=== PATIENT | female | born 1980 | race Caucasian/White ===

== ENCOUNTER 2018-06-10 10:49 | Emergency (ER) | payer OTHER ==
[2018-06-10 11:19] VITALS: BP 112/74; PULSE 109; RESP 18; TEMP 98.9
[2018-06-10] MEDS ORDERED: ACET/COD 300 MG/30 MG STARTER PACK 6 TAB BTL PO STA (11:36)
--- NOTE | 2018-06-10 11:37 | ED ---
URI HPI - General Chief Complaint: Upper Respiratory Infection Stated Complaint: poss allergic reaction Time Seen by Provider: 06/10/18 11:24 Source: patient, RN notes reviewed Mode of arrival: ambulatory Limitations: no limitations - History of Present Illness Initial Comments: 38-year-old female presents emergency Department chief complaint of sinus pressure, congestion sore throat or pressure. Patient states she has been sick for last couple weeks until PCP and was placed on Bactrim for 3 days. Patient states that she was not feeling better she went back and was prescribed the same medication. She states every time she takes medication she feels worse. She states that she aches now from it. Patient denies any vomiting states she' s had some nausea. Denies any chest pain or shortness breath. Patient also states that she felt like she slept wrong and has some stiffness the side of her neck. She has no pain with flexion extension. Patient denies any focal weakness, blurred vision. Patient states that she has never taken Bactrim in the past. - Related Data Previous Rx's Medication Instructions Recorded Clarithromycin [Biaxin] 500 mg PO Q12HR #20 tablet 06/10/18 Cyclobenzaprine [Flexeril] 10 mg PO TID PRN #15 tab 06/10/18 predniSONE 50 mg PO DAILY #5 tab 06/10/18 Allergies Allergy/AdvReac Type Severity Reaction Status Date / Time Penicillins Allergy Rash/Hives Verified 06/10/18 11:36 Review of Systems ROS Statement: Those systems with pertinent positive or pertinent negative responses have been documented in the HPI. ROS Other: All systems not noted in ROS Statement are negative. Past Medical History Past Medical History: No Reported History History of Any Multi-Drug Resistant Organisms: None Reported Past Surgical History: Tubal Ligation Additional Past Surgical History / Comment(s): fistula repair Past Psychological History: No Psychological Hx Reported Smoking Status: Current every day smoker Past Alcohol Use History: Rare Past Drug Use History: None Reported General Exam Limitations: no limitations General appearance: alert, in no apparent distress Head exam: Present: atraumatic, normocephalic, normal inspection Eye exam: Present: normal appearance, PERRL, EOMI. Absent: scleral icterus, conjunctival injection, periorbital swelling ENT exam: Present: mucous membranes moist, normal external ear exam, other ( Sinus tenderness bilaterally maxillary). Absent: normal oropharynx (Postnasal drainage), TM's normal bilaterally (Fluid noted bilaterally) Neck exam: Present: normal inspection, tenderness (Tenderness of the trapezius, cervical paraspinal region), full ROM. Absent: meningismus, lymphadenopathy Respiratory exam: Present: normal lung sounds bilaterally. Absent: respiratory distress, wheezes, rales, rhonchi, stridor Cardiovascular Exam: Present: regular rate, normal rhythm, normal heart sounds. Absent: systolic murmur, diastolic murmur, rubs, gallop, clicks Neurological exam: Present: alert, oriented X3, CN II-XII intact Skin exam: Present: warm, dry, intact, normal color. Absent: rash Course Vital Signs 06/10/18 11:16 Temperature 98.9 F Pulse Rate 109 H Respiratory 18 Rate Blood Pressure 112/74 O2 Sat by Pulse 99 Oximetry Medical Decision Making - Medical Decision Making 38-year-old female presented emergency department for sinus issues, headache not feeling well. Patient has underlying sinusitis. Patient does have an ALLERGY to penicillin. Patient was started on Bactrim is having a reaction to this. This will be stopped at this time and given prednisone and biaxin. Patient also complains of neck pain is related to trapezius muscle spasm. Patient be dischaI did discuss that she is to follow-up for recheck in one to days return for any worsening symptoms.rged with Flexeril. Disposition Clinical Impression: Acute sinusitis, Trapezius strain, Myalgia, Medication reaction Disposition: HOME SELF-CARE Condition: Stable Instructions: Sinusitis (ED) Additional Instructions: Please return to the Emergency Department if symptoms worsen or any other concerns. Prescriptions: Clarithromycin [Biaxin] 500 mg PO Q12HR #20 tablet Cyclobenzaprine [Flexeril] 10 mg PO TID PRN #15 tab PRN Reason: Muscle Spasm predniSONE 50 mg PO DAILY #5 tab Is patient prescribed a controlled substance at d/c from ED?: No Referrals: Jules Gaytan DO [Primary Care Provider] - 1-2 days Time of Disposition: 11:36
== END 2018-06-10 11:59 | disposition home or self-care (01) ==
LOC: EC 10:49
DX: S46.919A Strain of unspecified muscle, fascia and tendon at shoulder and upper arm level, unspecified arm, initial encounter (principal); J01.90 Acute sinusitis, unspecified; T37.0X5A Adverse effect of sulfonamides, initial encounter; M79.1 Myalgia; F17.200 Nicotine dependence, unspecified, uncomplicated; Z88.0 Allergy status to penicillin
CPT/HCPCS: 99283

== ENCOUNTER → 2019-02-02 | Outpatient (CLI) | payer OTHER ==
[2019-02-02 13:25] LABS: Basophils % (A) 1 %; Eosinophils # (A) 0.1 k/uL (0-0.7); Eosinophils % (A) 1 %; HCT 42.2 % (34.0-46.0); HGB 13.2 gm/dL (11.4-16.0); Lymphocytes # (A) 3.2 k/uL (1.0-4.8); Lymphocytes % (A) 42 %; MCH 28.1 pg (25.0-35.0); MCHC 31.4 g/dL (31.0-37.0); MCV 89.4 fL (80.0-100.0); Mean Platelet Volume 7.5; Monocytes # (A) 0.3 k/uL (0-1.0); Monocytes % (A) 4 %; Neutrophils # (A) 3.9 k/uL (1.3-7.7); Neutrophils % (A) 51 %; Platelet Count 207 k/uL (150-450); RBC 4.72 m/uL (3.80-5.40); RDW 13.6 % (11.5-15.5); WBC 7.6 k/uL (3.8-10.6)
== END | disposition home or self-care (01) ==
LOC: LABPAT 12:42
PROVIDERS: ATTEND Obstetrics & Gynecology
DX: Z01.812 Encounter for preprocedural laboratory examination (principal)
CPT/HCPCS: 36415; 85025

== ENCOUNTER 2019-02-12 06:44 | Day surgery (SDC) | payer OTHER ==
[2019-02-10 11:49] VITALS: BMI 26.6
--- NOTE | 2019-02-10 16:17 | P.HPOB ---
History of Present Illness H&P Date: 02/10/19 Chief Complaint: Menorrhagia Patient is a 38-year-old female who has heavy vaginal bleeding. Patient relates that the heavy vaginal bleeding has been going on where she is bleeding every 2 weeks very heavy for the first 3-4 days lasting 5-7 days this is been present for a number of months. An ultrasound was done in November which revealed no specific findings. Labs were also generally unremarkable. She is scheduled for D&C with hysteroscopy NovaSure ablation at her request. She did have a tubal ligation. On physical exam vital signs are stable and afebrile. Heart regular, lungs clear, extremities without pain. Abdomen soft nontender. Positive bowel sounds are noted. Assessment menorrhagia. Plan D&C with hysteroscopy NovaSure ablation risks/benefits/alternatives reviewed with the patient in detail and did include but were not limited to potential bleeding and infection as well as pain issues from the ablation as well as potential perforation or other problems competitions that may require further surgery. Past Medical History Past Medical History: Cancer Additional Past Medical History / Comment(s): hx. cervical cancer 20 yrs ago, heavy, frequent periods History of Any Multi-Drug Resistant Organisms: None Reported Past Surgical History: Tubal Ligation Additional Past Surgical History / Comment(s): fistula repair Past Anesthesia/Blood Transfusion Reactions: Motion Sickness, Postoperative Nausea & Vomiting (PONV) Smoking Status: Former smoker - Past Family History Father Family Medical History: Cancer Medications and Allergies Home Medications Medication Instructions Recorded Confirmed Type L.acidoph,Paracasei, B.lactis 1 each PO DAILY 02/10/19 02/10/19 History [Probiotic] Turmeric Root Extract [Turmeric] 500 mg PO DAILY 02/10/19 02/10/19 History Allergies Allergy/AdvReac Type Severity Reaction Status Date / Time Penicillins Allergy Rash/Hives Verified 02/10/19 11:36 Sulfa (Sulfonamide Allergy dizzy,light Verified 02/10/19 11:36 Antibiotics) headed,head ache Exam Osteopathic Statement: *. No significant issues noted on an osteopathic stru ctural exam other than those noted in the History and Physical/Consult. Intake and Output 02/10/19 02/10/19 02/10/19 06:59 14:59 22:59 Other: Weight 72.575 kg
[~2019-02-12 06:44] MED LIST: DEXAMETHASONE SOD PHOSPHATE 10 MG/ML 1 ML VIAL IV ONE; HYDROmorphone 0.5 MG/0.5 ML SYRINGE IVP PRN; LACTATED RINGERS 1,000 ML IV SCH; LIDOCAINE 1% 20 ML VIAL (10MG/ML) FOR IV START INTRADERMA PRN; ONDANSETRON 4 MG/2 ML VIAL IVP ONE; Pre Op ABX Message 1 EACH MISC MISCELLANE ONE; SCOPOLAMINE 1.5MG/72HR PATCH TRANSDERM ONE
[2019-02-12] MEDS ORDERED: LIDOCAINE 1% INJ 10MG/ML (20 ML MDV) ONE (07:36)
[2019-02-12] MEDS ORDERED: PROPOFOL 10 MG/ML 20 ML VIAL IV ONE (07:36)
[2019-02-12] MEDS ORDERED: MIDAZOLAM 2 MG/2 ML VIAL ONE (07:36)
[2019-02-12] MEDS ORDERED: KETOROLAC 30 MG/ML 1 ML VIAL ONE (07:36)
[2019-02-12] MEDS ORDERED: fentaNYL (PF) 50 MCG/ML 2 ML AMP ONE (07:36)
--- NOTE | 2019-02-12 08:18 | P.OP ---
Date of Procedure: 02/12/19 Preoperative Diagnosis: Menorrhagia Postoperative Diagnosis: Same Procedure(s) Performed: D&C with hysteroscopy, NovaSure ablation Anesthesia: KAYLEIGHA Surgeon: Fito Vegas Estimated Blood Loss (ml): 3 Pathology: other (Uterine curettings) Condition: stable Disposition: same day Operative Findings: Anteverted uterus no other pathology noted Description of Procedure: Patient was taken to the operating suite where a general anesthetic was found be adequate. She was prepped and draped in the normal sterile fashion and placed in the dorsal lithotomy position. Initially a weighted speculum was inserted into the vagina and the anterior lip cervix identified and grasped with Allis clamp. Cervix was then sounded to 9 cm and was dilated. Camera was inserted no gross pathology was noted. Therefore camera was removed and sharp curettings of the endometrium were obtained. Tissue was placed on Telfa and sent to pathology. Once completed uterus the NovaSure systems inserted with length of 4.5 and a width of 2.5 it was tested and enabled. It was then burned for 2 minutes. Incidents were then removed camera was reinserted with excellent burn noted. All incidents were then removed. Sponge, lap, needle counts were all correct 2. Patient was taken to the recovery room in stable and satisfactory condition. Plan - Discharge Summary Discharge Rx Participant: Yes New Discharge Prescriptions: New Ibuprofen [Motrin] 600 mg PO Q6HR PRN #30 tab PRN Reason: Pain No Action Turmeric Root Extract [Turmeric] 500 mg PO DAILY L.acidoph,Paracasei, B.lactis [Probiotic] 1 each PO DAILY Discharge Medication List L.acidoph,Paracasei, B.lactis [Probiotic] 1 each PO DAILY 02/10/19 [History] Turmeric Root Extract [Turmeric] 500 mg PO DAILY 02/10/19 [History] Ibuprofen [Motrin] 600 mg PO Q6HR PRN #30 tab 02/12/19 [Rx] Follow up Appointment(s)/Referral(s): Fito Vegas DO [Doctor of Osteopathic Medicine] - 2 Weeks Activity/Diet/Wound Care/Special Instructions: No heavy lifting, limit stairs and driving and pelvic rest today. If any high temperatures, heavy bleeding, or severe pain call my office Discharge Disposition: HOME SELF-CARE
[2019-02-12 08:24] VITALS: TEMP 96.7
[2019-02-12 09:15] VITALS: RESP 16
[2019-02-12 09:33] VITALS: BP 128/81; PULSE 53
== END 2019-02-12 09:54 | disposition home or self-care (01) ==
LOC: OR 06:44
PROVIDERS: ATTEND Obstetrics & Gynecology
DX: N92.0 Excessive and frequent menstruation with regular cycle (principal); Z85.41 Personal history of malignant neoplasm of cervix uteri; Z98.51 Tubal ligation status; Z87.891 Personal history of nicotine dependence; Z88.0 Allergy status to penicillin; Z88.2 Allergy status to sulfonamides
CPT/HCPCS: 81025; 88305; 58563; J2250; J1100; J2405; J2001; J3010; J1885; J2704

== ENCOUNTER → 2019-10-22 | Outpatient (CLI) | payer OTHER ==
--- NOTE | 2019-10-22 13:54 | XR ---
EXAMINATION TYPE: XR knee complete RT DATE OF EXAM: 10/22/2019 COMPARISON: NONE HISTORY: Pain TECHNIQUE: Four views are submitted. FINDINGS: Osseous structures are intact. No acute fracture seen. Mild narrowing of the medial compartment of the joint with no erosive changes. Trace amount of fluid in the suprapatellar bursa suspected. IMPRESSION: 1. Mild medial compartment osteoarthritis. Trace amount of fluid in the suprapatellar bursa is noted. Correlate with MRI as clinically warranted.
== END | disposition home or self-care (01) ==
LOC: RADXRMAIN 13:25
PROVIDERS: ATTEND Nurse Practitioner Family
DX: M17.11 Unilateral primary osteoarthritis, right knee (principal)

== ENCOUNTER → 2020-05-02 | Outpatient (CLI) | payer OTHER ==
--- NOTE | 2020-05-02 11:07 | MM ---
Reason for exam: screening (asymptomatic). Baseline mammogram. History: Patient has history of other cancer at age 17. Physical Findings: Nurse did not find any significant physical abnormalities on exam. MG Screening Mammo w CAD Bilateral CC and MLO view(s) were taken. The breast tissue is heterogeneously dense. This may lower the sensitivity of mammography. There is no discrete abnormality. Benign bilateral axillary lymph nodes. These results were verbally communicated with the patient and result sheet given to the patient on 05/02/20. ASSESSMENT: Negative, BI-RAD 1 RECOMMENDATION: Routine screening mammogram of both breasts in 1 year.
== END | disposition home or self-care (01) ==
LOC: RADMAMWWP 10:19
PROVIDERS: ATTEND Family Medicine
DX: Z12.39 Encounter for other screening for malignant neoplasm of breast (principal)
CPT/HCPCS: 77067

== ENCOUNTER 2020-11-05 18:57 | Emergency (ER) | payer OTHER ==
[2020-11-05 19:02] VITALS: RESP 18; TEMP 98.5
--- NOTE | 2020-11-05 19:52 | US ---
EXAMINATION TYPE: US venous doppler duplex LE LT DATE OF EXAM: 11/05/2020 7:11 PM COMPARISON: NONE CLINICAL HISTORY: r/o dvt. Left leg pain x 1 day SIDE PERFORMED: Left TECHNIQUE: The lower extremity deep venous system is examined utilizing real time linear array sonog kolby with graded compression, doppler sonography and color-flow sonography. VESSELS IMAGED: Common Femoral Vein Deep Femoral Vein Greater Saphenous Vein * Femoral Vein Popliteal Vein Small Saphenous Vein * Proximal Calf Veins (* superficial vessels) Left Leg: Appears negative for DVT IMPRESSION: No evidence of deep vein thrombosis in the left leg.
--- NOTE | 2020-11-05 20:05 | ED ---
Extremity Problem HPI - General Chief complaint: Extremity Problem,Nontraumatic Stated complaint: lt knee pain Time Seen by Provider: 11/05/20 19:04 Source: patient Mode of arrival: ambulatory Limitations: no limitations - History of Present Illness Initial comments: 40-year-old female presents to emergency department with a chief complaint of left leg pain. 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 Patient states while she was in bleeding, she felt a tearing sensation in her left calf. States most of the pain is located in the proximal calf region. States the pain is exacerbated with full extension of flexion of the lknee. Denies unilateral leg swelling. Denies any chest pain or shortness of breath. Denies history of PE DVT. Denies any injuries to the leg, erythema, ecchymosis or swelling. - Related Data Home Medications Medication Instructions Recorded Confirmed L.acidoph,Paracasei, B.lactis 1 each PO DAILY 02/10/19 02/12/19 [Probiotic] Turmeric Root Extract [Turmeric] 500 mg PO DAILY 02/10/19 02/12/19 Previous Rx's Medication Instructions Recorded Ibuprofen [Motrin] 600 mg PO Q6HR PRN #30 tab 02/12/19 Allergies Allergy/AdvReac Type Severity Reaction Status Date / Time Penicillins Allergy Rash/Hives Verified 11/05/20 19:02 Sulfa (Sulfonamide Allergy dizzy,light Verified 11/05/20 19:02 Antibiotics) headed,head ache Review of Systems ROS Statement: Those systems with pertinent positive or pertinent negative responses have been documented in the HPI. ROS Other: All systems not noted in ROS Statement are negative. Past Medical History Past Medical History: No Reported History History of Any Multi-Drug Resistant Organisms: None Reported Past Surgical History: Tubal Ligation Additional Past Surgical History / Comment(s): fistula repair Past Psychological History: No Psychological Hx Reported Smoking Status: Current every day smoker Past Alcohol Use History: Rare Past Drug Use History: None Reported General Exam Limitations: no limitations General appearance: alert, in no apparent distress Head exam: Present: atraumatic, normocephalic, normal inspection Eye exam: Present: normal appearance, PERRL, EOMI Pupils: Present: normal accommodation ENT exam: Present: normal exam, normal oropharynx, mucous membranes moist Neck exam: Present: normal inspection, full ROM. Absent: tenderness Respiratory exam: Present: normal lung sounds bilaterally. Absent: respiratory distress Cardiovascular Exam: Present: regular rate, normal rhythm, normal heart sounds Extremities exam: Present: normal inspection, tenderness (proximal calf tenderness), normal capillary refill, other (palpable DP and PT bilaterally.). Absent: full ROM (limited range of motion of the left knee due to pain), pedal edema, joint swelling, calf tenderness Back exam: Present: normal inspection, full ROM. Absent: tenderness, CVA te nderness (R), CVA tenderness (L) Neurological exam: Present: alert, oriented X3 Psychiatric exam: Present: normal affect, normal mood Skin exam: Present: warm, dry, intact, normal color Course Vital Signs 11/05/20 18:59 Temperature 98.5 F Pulse Rate 94 Respiratory 18 Rate Blood Pressure 108/57 O2 Sat by Pulse 98 Oximetry Medical Decision Making - Medical Decision Making 40-year-old male presents to the emergency department with a chief complaint of left leg pain. on physical examination, patient is neurovascularly intact and the left lower extremity. There was a concern for DVT. Ultrasound obtained shows no signs of DVT. Patient was advised to follow-up with an change management specialist. She was advised to rest, ice, compress and elevate. Strict return parameters were thoroughly discussed with patient was understanding and agreeable. Case discussed with . Disposition Clinical Impression: Muscle strain of left lower leg Disposition: HOME SELF-CARE Condition: Stable Instructions (If sedation given, give patient instructions): Leg Pain (ED) Additional Instructions: follow-up with orthopedics.Please return to the Emergency Department if symptoms worsen or any other concerns. Is patient prescribed a controlled substance at d/c from ED?: No Referrals: Jules Gaytan DO [Primary Care Provider] - 1-2 days Jerald Erwin MD [STAFF PHYSICIAN] - 1-2 days Time of Disposition: 20:05
[2020-11-05 20:18] VITALS: BP 110/62; PULSE 89
== END 2020-11-05 20:18 | disposition home or self-care (01) ==
LOC: EC 18:57
DX: S86.912A Strain of unspecified muscle(s) and tendon(s) at lower leg level, left leg, initial encounter (principal); F17.200 Nicotine dependence, unspecified, uncomplicated; Z98.51 Tubal ligation status; Z88.0 Allergy status to penicillin; Z88.2 Allergy status to sulfonamides; X58.XXXA Exposure to other specified factors, initial encounter
CPT/HCPCS: 99283

== ENCOUNTER → 2020-11-06 | Outpatient (CLI) | payer OTHER ==
--- NOTE | 2020-11-06 12:49 | XR ---
Left knee HISTORY: Left knee pain 4 views the left knee There is marginal spurring is mild and medial compartment and patellofemoral joint, no evident joint effusion. Bone mineralization and alignment are maintained. No fracture or dislocation. Small entheso phyte present at the insertion of the quadriceps tendon. IMPRESSION: Mild osteoarthritis. Knee MRI may be of benefit.
== END | disposition home or self-care (01) ==
LOC: RADXRMAIN 12:15
PROVIDERS: ATTEND Nurse Practitioner Family
DX: M17.12 Unilateral primary osteoarthritis, left knee (principal)

== ENCOUNTER 2022-02-16 18:12 | Emergency (ER) | payer OTHER ==
[2022-02-16 18:26] VITALS: RESP 18
--- NOTE | 2022-02-16 18:50 | XR ---
EXAMINATION TYPE: XR cervical spine limited DATE OF EXAM: 02/16/2022 COMPARISON: NONE HISTORY: Neck pain TECHNIQUE: 5 views FINDINGS: Cervical vertebra have normal alignment. Disc spaces are normal. Posterior elements are int act. Atlantoaxial facet joint is normal. There are no cervical ribs. IMPRESSION: Negative cervical spine exam.
[2022-02-16] MEDS ORDERED: ORPHENADRINE 30 MG/ML 2 ML VIAL IM STA (20:17)
[2022-02-16] MEDS ORDERED: DEXAMETHASONE SOD PHOSPHATE 10 MG/ML 1 ML VIAL IM STA (20:18)
[2022-02-16] MEDS ORDERED: KETOROLAC 15 MG/ML 1 ML VIAL IM STA (20:18)
[2022-02-16] MEDS ORDERED: LIDOCAINE 5% PATCH TOPICAL STA (20:46)
--- NOTE | 2022-02-16 22:19 | CT ---
EXAMINATION TYPE: CT soft tissue neck wo con DATE OF EXAM: 02/16/2022 COMPARISON: None HISTORY: neck pain and pain w/ swallowing CT DLP: 273.9 mGycm Automated exposure control for dose reduction was used. Images obtained from the lateral ventricles to the aortic arch with no contrast. There is normal branching pattern of the great vessels on the aortic arch. No mediastinal adenopathy. Thyroid gland is intact. Trachea appears normal. Epiglottis is normal. No evidence of pharyngeal mas s. Tonsils and adenoids appear within normal limits. There is normal aeration of the paranasal sinuse s. Orbital margins are intact. No evidence of orbital mass. The tongue appears normal. Epiglottis is normal. No evidence of esophageal foreign body. Prevertebral soft tissues are within normal limits. There are multiple anterior triangle cervical lymph nodes that measure up to 12 mm in length. There is mild straightening of the cervical spine. No significant disc space narrowing. Facet joints are intact. IMPRESSION: No significant abnormality of the soft tissue of the neck. Nonspecific cervical lymph nodes.
--- NOTE | 2022-02-16 22:25 | ED ---
Neck Injury/Pain HPI - General Chief Complaint: Neck Pain/Injury Stated Complaint: neck pain Time Seen by Provider: 02/16/22 19:53 Mode of arrival: ambulatory Limitations: no limitations - History of Present Illness Initial Comments: Patient is a 41-year-old female presenting with chief complaint of neck pain. Patient states that she has had right-sided neck Pain for the last few days, however today it acutely worsened. Patient states that the pain starts at the base of her skull on the right side, and then wraps around to the front of her neck and down to the level of her clavicle. It hurts to chew and swallow. She describes it as a throbbing spasming pain. She has been taking Motrin and has tried muscle relaxers at home with little relief. She denies any chest pain, shortness of breath, fever, chills, nausea, vomiting, vision or hearing changes, headache, dizziness, abdominal pain, diarrhea, constipation, hematochezia, melena, dysuria, hematuria, urgency, frequency. - Related Data Home Medications Medication Instructions Recorded Confirmed L.acidoph,Paracasei, B.lactis 1 each PO DAILY 02/10/19 02/12/19 [Probiotic] Turmeric Root Extract [Turmeric] 500 mg PO DAILY 02/10/19 02/12/19 Previous Rx's Medication Instructions Recorded Ibuprofen [Motrin] 600 mg PO Q6HR PRN #30 tab 02/12/19 methylPREDNISolone Dose Pack 4 mg PO DIRECTED #1 packet 02/16/22 [Medrol Dose Pack] Allergies Allergy/AdvReac Type Severity Reaction Status Date / Time Penicillins Allergy Rash/Hives Verified 02/16/22 18:26 Sulfa (Sulfonamide Allergy dizzy,light Verified 02/16/22 18:26 Antibiotics) headed,head ache Review of Systems ROS Statement: Those systems with pertinent positive or pertinent negative responses have been documented in the HPI. ROS Other: All systems not noted in ROS Statement are negative. Past Medical History Past Medical History: No Reported History History of Any Multi-Drug Resistant Organisms: None Reported Past Surgical History: Tubal Ligation Additional Past Surgical History / Comment(s): fistula repair Past Psychological History: No Psychological Hx Reported Smoking Status: Current every day smoker Past Alcohol Use History: Rare Past Drug Use History: None Reported General Exam Limitations: no limitations General appearance: alert, in no apparent distress Head exam: Present: atraumatic, normocephalic, normal inspection Eye exam: Present: normal appearance, PERRL, EOMI. Absent: scleral icterus ENT exam: Present: normal exam, normal oropharynx (No midline shift or signs of visible obstruction), mucous membranes moist Neck exam: Present: normal inspection, tenderness (Right sided muscles, point tenderness at the base of the skull on the right side. Range of motion is limited secondary to pain). Absent: lymphadenopathy, thyromegaly Respiratory exam: Present: normal lung sounds bilaterally. Absent: respiratory distress, wheezes, rales, rhonchi, stridor Cardiovascular Exam: Present: regular rate, normal rhythm, normal heart sounds. Absent: systolic murmur, diastolic murmur, rubs, gallop, clicks Extremities exam: Present: normal inspection Neurological exam: Present: alert, oriented X3, CN II-XII intact Psychiatric exam: Present: normal affect, normal mood Skin exam: Present: warm, dry, intact, normal color. Absent: rash Course Vital Signs 02/16/22 02/16/22 18:21 22:56 Temperature 98.4 F 98.5 F Pulse Rate 90 87 Respiratory 18 18 Rate Blood Pressure 124/82 108/64 O2 Sat by Pulse 99 98 Oximetry Medical Decision Making - Medical Decision Making Patient is a 41-year-old female presenting with chief complaint neck pain. Patient has had right-sided neck pain for the last few days, however today it acutely worsened. Pain is throbbing, there is pain with swallowing and chewing. No fever or chills. On examination there is no lymphadenopathy, tympanic membranes are normal, no sign of midline shift or visible obstruction of the posterior pharynx. Muscles the right-sided neck appear very tight on palpation, there is point tenderness at the base of the skull the right side. Cervical spine x-rays negative. Patient was given Toradol, Decadron, Norflex, on reasse ssment patient has visibly improved, she has increased range of motion of the neck and states her pain has dramatically improved. When asked if she was still having odontophagia, patient swallowed and broke down in tears is was so painful. Because of this finding I chose to do a soft tissue neck CT, which was negative. Repeat reassessment patient seems to be even more comfortable, states that her pain has completely dissipated. She appears stable for discharge with outpatient follow-up at this time. I provided her with a prescription for Medrol Dosepak. Continue supportive treatment with Motrin, Tylenol, icing, rest. Follow-up with PCP this week. Report back to ER if any new or worsening symptoms. I discussed return parameters alarm symptoms. Answered all questions. Patient conveyed verbal understanding and agreed to the plan. I discussed this case with my attending Dr. Benavidez. Disposition Clinical Impression: Strain of neck muscle Disposition: HOME SELF-CARE Condition: Good Instructions (If sedation given, give patient instructions): Cervical Strain (ED), Muscle Spasm (ED) Additional Instructions: Follow-up with PCP this week. Take medication as prescribed. Report back to ER with any worsening symptoms. Prescriptions: methylPREDNISolone Dose Pack [Medrol Dose Pack] 4 mg PO DIRECTED #1 packet Is patient prescribed a controlled substance at d/c from ED?: No Referrals: Jules Gaytan DO [Primary Care Provider] - 1-2 days Time of Disposition: 22:38
[2022-02-16 22:57] VITALS: BP 108/64; PULSE 87; TEMP 98.5
== END 2022-02-16 22:57 | disposition home or self-care (01) ==
LOC: EC 18:12
DX: S16.1XXA Strain of muscle, fascia and tendon at neck level, initial encounter (principal); F17.200 Nicotine dependence, unspecified, uncomplicated; Z88.0 Allergy status to penicillin; Z88.2 Allergy status to sulfonamides; X58.XXXA Exposure to other specified factors, initial encounter
CPT/HCPCS: 99284; 96372; 72040; 70490; J1100; J2360; J1885

== ENCOUNTER → 2022-07-22 | Outpatient (CLI) | payer OTHER ==
--- NOTE | 2022-07-23 08:50 | MM ---
Reason for Exam: Screening (asymptomatic). Last mammogram was performed 2 year(s) and 3 month(s) ago. Patient History: Menarche at age 11. First Full-Term at age 16. Other cancer, age 17. Risk Values: Isamar 5 year model risk: 0.6%. NCI Lifetime model risk: 7.1%. Prior Study Comparison: 05/02/2020 Bilateral Screening Mammogram, [facility]. Tissue Density: There are scattered fibroglandular densities. Findings: Analyzed By CAD. There is no suspicious group of microcalcifications or new suspicious mass in either breast. Overall Assessment: Negative, BI-RAD 1 Management: Screening Mammogram of both breasts in 1 year. A clinical breast exam by your physician is recommended on an annual basis and results should be correlated with mammographic findings. [facility] will attempt to contact patient to return for supplemental views and ultrasound if indicated. Electronically signed and approved by: Erasmo Bettencourt DO
== END | disposition home or self-care (01) ==
LOC: RADMAMWWP 13:39
PROVIDERS: ATTEND Family Medicine
DX: Z12.31 Encounter for screening mammogram for malignant neoplasm of breast (principal)
CPT/HCPCS: 77067

== ENCOUNTER → 2023-10-16 | Outpatient (CLI) | payer OTHER ==
--- NOTE | 2023-10-16 19:47 | US ---
EXAMINATION TYPE: US st tissue neck DATE OF EXAM: 10/16/2023 COMPARISON: EXAMINATION TYPE: US thyroid st tissue head/neck DATE OF EXAM: 10/16/2023 COMPARISON: NONE CLINICAL INDICATION: Female, 43 years old with history of R22.1 LOCALIZED AND LUMP; right neck lump s april Chaz considerably smaller in size per patient. FINDINGS: Specialist Icu notes: Scanned right neck lump area. Small hypoechoic area seen .4 x .2 x .5 c m. On the provided images, this is either just deep to or partially involves the skin layer. Somewhat ec hogenic center. IMPRESSION: Either a small 5 mm lymph node or cutaneous lesion at the patient's right neck palpable site. Further clinical follow-up can be performed. If any growth is noted, the area can be rescanned.
== END | disposition home or self-care (01) ==
LOC: RADUSWWP 15:34
PROVIDERS: ATTEND Family Medicine
DX: R22.1 Localized swelling, mass and lump, neck (principal)
CPT/HCPCS: 76536

== ENCOUNTER 2024-01-19 08:31 | Emergency (ER) | payer OTHER ==
[2024-01-19] MEDS: ONDANSETRON 4 MG/2 ML VIAL IVP STA (09:07)
[2024-01-19] MEDS: SODIUM CHLORIDE 0.9% 1,000 ML IV STA (09:07)
[2024-01-19] MEDS: KETOROLAC 15 MG/ML 1 ML VIAL IVP STA (09:07)
--- NOTE | 2024-01-19 09:08 | ED ---
Dizziness HPI - General Chief Complaint: Syncope Stated Complaint: Nausea, vomitting Time Seen by Provider: 01/19/24 08:35 Source: patient, RN notes reviewed Mode of arrival: ambulatory Limitations: no limitations - History of Present Illness Initial Comments: This is a 43 year old female who presents to the emergency department for a syncopal episode and head injury. Patient's son states that she was standing in the kitchen when she started to become dizzy. She fell backwards and hit the back of her head on a kitchen door handle. Patient and her son believe that she lost consciousness before she fell. Patient states that she was in a lot of pain related to her chronic sciatica, which she states may have triggered this episode. She has been taking Ibuprofen which is not effective. Denies any new injuries or loss of bowel/bladder control or saddle anesthesia. She has since continued to complain of a headache and dizziness. She also feels very nauseous and has thrown up several times. Not taking any blood thinners. MD Complaint: dizziness - Related Data Home Medications Medication Instructions Recorded Confirmed L.acidoph,Paracasei, B.lactis 1 each PO DAILY 02/10/19 02/12/19 [Probiotic] Turmeric Root Extract [Turmeric] 500 mg PO DAILY 02/10/19 02/12/19 Previous Rx's Medication Instructions Recorded Ibuprofen [Motrin] 600 mg PO Q6HR PRN #30 tab 02/12/19 methylPREDNISolone Dose Pack 4 mg PO DIRECTED #1 packet 02/16/22 [Medrol Dose Pack] Lidocaine 4% Patch 1 patch TOPICAL DAILY PRN #30 patch 01/19/24 Ondansetron Odt [Zofran Odt] 4 mg PO Q8HR PRN #20 tab 01/19/24 methocarbamoL [Robaxin-750] 1,500 mg PO TID PRN #30 tab 01/19/24 predniSONE 50 mg PO DAILY 5 Days #5 tab 01/19/24 Allergies Allergy/AdvReac Type Severity Reaction Status Date / Time Penicillins Allergy Rash/Hives Verified 01/19/24 08:41 Sulfa (Sulfonamide Allergy dizzy,light Verified 01/19/24 08:41 Antibiotics) headed,head ache Review of Systems ROS Statement: Those systems with pertinent positive or pertinent negative responses have been documented in the HPI. ROS Other: All systems not noted in ROS Statement are negative. Past Medical History Past Medical History: No Reported History History of Any Multi-Drug Resistant Organisms: None Reported Past Surgical History: Tubal Ligation Additional Past Surgical History / Comment(s): fistula repair Past Psychological History: No Psychological Hx Reported Smoking Status: Current every day smoker Past Alcohol Use History: Rare Past Drug Use History: None Reported General Exam Limitations: no limitations General appearance: alert, in no apparent distress Head exam: Present: atraumatic, normocephalic, normal inspection Eye exam: Present: normal appearance, PERRL, EOMI. Absent: scleral icterus, conjunctival injection, periorbital swelling Respiratory exam: Present: normal lung sounds bilaterally. Absent: respiratory distress, wheezes, rales, rhonchi, stridor Cardiovascular Exam: Present: regular rate, normal rhythm, normal heart sounds. Absent: systolic murmur, diastolic murmur, rubs, gallop, clicks GI/Abdominal exam: Present: soft, normal bowel sounds. Absent: distended, tenderness, guarding, rebound, rigid Neurological exam: Present: alert, oriented X3, CN II-XII intact Psychiatric exam: Present: normal affect, normal mood Skin exam: Present: warm, dry, intact, normal color. Absent: rash Course Vital Signs 01/19/24 01/19/24 08:34 11:41 Temperature 98.2 F 98.0 F Pulse Rate 68 66 Respiratory 18 16 Rate Blood Pressure 103/67 92/56 O2 Sat by Pulse 98 98 Oximetry Medical Decision Making - Medical Decision Making This is a 43 year old female who presents to the emergency department for a syncopal episode. Was pt. sent in by a medical professional or institution? @ -No Did you speak to anyone other than the patient for history? @ -No Did you review nursing and triage notes? @ -Yes, and I agree, it is accurate with regards to the patient's symptoms. Were old charts reviewed? @ -No Differential Diagnosis? @ -Differential Syncope: Valvular disease, hypertrophic cardiomyopathy, pulmonary embolism, tamponade, t achycardia, bradycardia, TX, hypovolemia, hemorrhage, dissection, anemia, intracranial hemorrhage, seizure, hypoglycemia, carbon monoxide poisoning, this is not meant to be an all-inclusive list. EKG interpreted by me (3pts min.)? @ -EKG interpreted by me demonstrating the following: Sinus rhythm. Ventricular rate 63 bpm, MT interval 139 ms, QRS duration 105 ms, QTc 459 ms. X-rays interpreted by me (1pt min.)? @ -Chest x-ray obtained, my interpretation identifies no localized consolidations or infiltrates. CT interpreted by me (1pt min.)? @ -Computed tomography scan of the brain and c-spine obtained. My interpret ation identifies no evidence of an acute intracranial hemorrhage, skull fracture, or cervical spine fracture. U/S interpreted by me (1pt. min.)? @ -Not obtained What testing was considered but not performed? (CT, X-rays, U/S, labs)? Why? @ -None What meds were considered but not given? Why? @ -None Did you discuss the management of the patient with other professionals? @ -No Did you reconcile home meds? @ -No Was smoking cessation discussed for >3mins.? @ -I discussed smoking cessation for greater than 3 minutes. The risk of smoking were discussed with the patient including but not limited to risks of cancer, stroke, coronary artery disease and COPD. Also discussed with patient were multiple methods of quitting smoking. Lastly we discussed the financial cost of smoking. Was critical care preformed (if so, how long)? @ -No Were there social determinants of health that impacted care today? How? (Homelessness, low income, unemployed, alcoholism, drug addiction, transportation, low edu. Level, literacy, decrease access to med. care, fdc, rehab)? @ -No Was there de-escalation of care discussed even if they declined? (Discuss DNR or withdrawal of care, Hospice)? @ -No What co-morbidities impacted this encounter? (DM, HTN, Smoking, COPD, CAD, Cancer, CVA, Hep., AIDS, mental health diagnosis, sleep apnea, morbid obesity)? @ -Sciatica, smoking Was patient admitted / discharged? @ -Discharged. Lab work unremarkable. Chest x-ray reveals no acute process. CT scan of the brain and C-spine obtained also revealing no acute findings. Patient's symptoms were well-controlled in the emergency department. She believes that symptoms were likely triggered by her exacerbation of sciatica. Currently only taking ibuprofen which has not been effective. Denies any loss of bowel/bladder control or saddle anesthesia. States that steroids and muscle relaxants have worked well for her in the past. She was given a prescription for prednisone, robaxin, and lidocaine patches. Zofran prescribed as well for any additional nausea. Advised close follow up with her PCP. Undiagnosed new problem with uncertain prognosis? @ -None Drug Therapy requiring intensive monitoring for toxicity (Heparin, Nitro, Insulin, Cardizem)? @ -None Were any procedures done? @ -None Diagnosis/symptom? @ -Syncope, head injury Acute, or Chronic, or Acute on Chronic? @ -Acute Uncomplicated (without systemic symptoms) or Complicated (systemic symptoms)? @ -Uncomplicated Side effects of treatment? @ -None Exacerbation, Progression, or Severe Exacerbation] @ -Not applicable Poses a threat to life or bodily function? @ -Unlikely Diagnosis/symptom? @ -Back pain Acute, or Chronic, or Acute on Chronic? @ -Chronic Uncomplicated (without systemic symptoms) or Complicated (systemic symptoms)? @ -Uncomplicated Side effects of treatment? @ -None Exacerbation, Progression, or Severe Exacerbation] @ -Exacerbation Poses a threat to life or bodily function? @ -The pain has some impact on her function. Return precautions reviewed in depth, the patient is instructed to return to the emergency department with any new, worsening, or concerning symptoms. Patient verbalized understanding. This case was discussed in detail with the attending ED physician, Dr. Baez. Presentation, findings, and treatment plan discussed in detail as well. - Lab Data Result diagrams: 01/19/24 09:03 01/19/24 09:03 Lab Results 01/19/24 01/19/24 01/19/24 Range/Units 09:03 09:03 09:03 WBC 11.0 H (3.8-10.6) k/uL RBC 4.78 (3.80-5.40) m/uL Hgb 14.2 (11.4-16.0) gm/dL Hct 43.8 (34.0-46.0) % MCV 91.6 (80.0-100.0) fL MCH 29.7 (25.0-35.0) pg MCHC 32.5 (31.0-37.0) g/dL RDW 13.1 (11.5-15.5) % Plt Count 264 (150-450) k/uL MPV 8.2 Neutrophils % 58 % Lymphocytes % 36 % Monocytes % 2 % Eosinophils % 2 % Basophils % 0 % Neutrophils # 6.4 (1.3-7.7) k/uL Lymphocytes # 4.0 (1.0-4.8) k/uL Monocytes # 0.3 (0-1.0) k/uL Eosinophils # 0.2 (0-0.7) k/uL Basophils # 0.0 (0-0.2) k/uL PT 10.1 (10.0-12.5) sec INR 0.9 (<1.2) APTT 22.4 (22.0-30.0) sec Sodium 138 (137-145) mmol/L Potassium 4.2 (3.5-5.1) mmol/L Chloride 108 H (98-107) mmol/L Carbon Dioxide 24 (22-30) mmol/L Anion Gap 6 mmol/L BUN 12 (7-17) mg/dL Creatinine 0.69 (0.52-1.04) mg/dL Est GFR (CKD-EPI)AfAm >90 (>60 ml/min/1.73 sqM) Est GFR (CKD-EPI)NonAf >90 (>60 ml/min/1.73 sqM) Glucose 143 H (74-99) mg/dL Calcium 8.7 (8.4-10.2) mg/dL Magnesium 1.6 (1.6-2.3) mg/dL Total Bilirubin 0.4 (0.2-1.3) mg/dL AST 25 (14-36) U/L ALT 13 (4-34) U/L Alkaline Phosphatase 93 (38-126) U/L Troponin I (0.000-0.034) ng/mL Total Protein 6.3 (6.3-8.2) g/dL Albumin 3.7 (3.5-5.0) g/dL Lipase 106 (23-300) U/L 01/19/24 Range/Units 09:03 WBC (3.8-10.6) k/uL RBC (3.80-5.40) m/uL Hgb (11.4-16.0) gm/dL Hct (34.0-46.0) % MCV (80.0-100.0) fL MCH (25.0-35.0) pg MCHC (31.0-37.0) g/dL RDW (11.5-15.5) % Plt Count (150-450) k/uL MPV Neutrophils % % Lymphocytes % % Monocytes % % Eosinophils % % Basophils % % Neutrophils # (1.3-7.7) k/uL Lymphocytes # (1.0-4.8) k/uL Monocytes # (0-1.0) k/uL Eosinophils # (0-0.7) k/uL Basophils # (0-0.2) k/uL PT (10.0-12.5) sec INR (<1.2) APTT (22.0-30.0) sec Sodium (137-145) mmol/L Potassium (3.5-5.1) mmol/L Chloride (98-107) mmol/L Carbon Dioxide (22-30) mmol/L Anion Gap mmol/L BUN (7-17) mg/dL Creatinine (0.52-1.04) mg/dL Est GFR (CKD-EPI)AfAm (>60 ml/min/1.73 sqM) Est GFR (CKD-EPI)NonAf (>60 ml/min/1.73 sqM) Glucose (74-99) mg/dL Calcium (8.4-10.2) mg/dL Magnesium (1.6-2.3) mg/dL Total Bilirubin (0.2-1.3) mg/dL AST (14-36) U/L ALT (4-34) U/L Alkaline Phosphatase (38-126) U/L Troponin I <0.012 (0.000-0.034) ng/mL Total Protein (6.3-8.2) g/dL Albumin (3.5-5.0) g/dL Lipase (23-300) U/L - Radiology Data Radiology results: report reviewed, image reviewed Disposition Clinical Impression: Sciatica, Syncope, Nicotine dependence, Head injury Disposition: HOME SELF-CARE Instructions (If sedation given, give patient instructions): Syncope (ED), Sciatica (ED) Additional Instructions: Return to the emergency department with any new, worsening, or concerning symptoms. Take the prednisone daily for 5 days. You can take the Robaxin as 1 to 2 tablets up to 3-4 times daily. Apply the lidocaine patches daily. You can take the Zofran up to every 8 hours as needed for nausea and vomiting. Follow up with your primary care provider in 1-2 days. Prescriptions: Lidocaine 4% Patch 1 patch TOPICAL DAILY PRN #30 patch PRN Reason: Pain predniSONE 50 mg PO DAILY 5 Days #5 tab methocarbamoL [Robaxin-750] 1,500 mg PO TID PRN #30 tab PRN Reason: Pain Ondansetron Odt [Zofran Odt] 4 mg PO Q8HR PRN #20 tab PRN Reason: Nausea And Vomiting Is patient prescribed a controlled substance at d/c from ED?: No Referrals: Jules Gaytan DO [Primary Care Provider] - 1-2 days Time of Disposition: 12:13
[2024-01-19 09:17] LABS: Basophils % (A) 0 %; Eosinophils # (A) 0.2 k/uL (0-0.7); Eosinophils % (A) 2 %; HCT 43.8 % (34.0-46.0); HGB 14.2 gm/dL (11.4-16.0); Lymphocytes % (A) 36 %; MCH 29.7 pg (25.0-35.0); MCHC 32.5 g/dL (31.0-37.0); MCV 91.6 fL (80.0-100.0); Mean Platelet Volume 8.2; Monocytes # (A) 0.3 k/uL (0-1.0); Monocytes % (A) 2 %; Neutrophils # (A) 6.4 k/uL (1.3-7.7); Neutrophils % (A) 58 %; Platelet Count 264 k/uL (150-450); RBC 4.78 m/uL (3.80-5.40); RDW 13.1 % (11.5-15.5)
[2024-01-19 09:32] LABS: ALT 13 U/L (4-34); AST 25 U/L (14-36); African American GFR (CKD) >90 (>60 ml/min/1.73 sqM); Albumin 3.7 g/dL (3.5-5.0); Alkaline Phosphatase 93 U/L (38-126); Anion Gap 6 mmol/L; Blood Urea Nitrogen 12 mg/dL (7-17); Calcium 8.7 mg/dL (8.4-10.2); Carbon Dioxide 24 mmol/L (22-30); Chloride 108 mmol/L (98-107); Glucose 143 mg/dL (74-99); Lipase 106 U/L (23-300); Magnesium 1.6 mg/dL (1.6-2.3); Non-African American GFR(CKD) >90 (>60 ml/min/1.73 sqM); Potassium 4.2 mmol/L (3.5-5.1); Sodium 138 mmol/L (137-145); Total Bilirubin 0.4 mg/dL (0.2-1.3); Total Protein 6.3 g/dL (6.3-8.2)
[2024-01-19 09:37] LABS: INR 0.9 (<1.2); Partial Thromboplastin Time 22.4 sec (22.0-30.0); Prothrombin Time 10.1 sec (10.0-12.5)
--- NOTE | 2024-01-19 10:11 | CT ---
EXAMINATION TYPE: CT brain cspine wo con CT DLP: 1587 mGycm, Automated exposure control for dose reduction was used. DATE OF EXAM: 01/19/2024 10:06 AM COMPARISON: None. CLINICAL INDICATION:Female, 43 years old with history of Head injury; vertigo, fall and hit head. pam sea, vomiting and dizziness after hitting head. TECHNIQUE: Brain: Multiple axial CT images of the brain were obtained without IV contrast. Cspine: Axial CT images from the skull base to the inferior aspect of T2 we obtained without intraven ous contrast. Coronal and sagittal reformatted images were also reviewed. FINDINGS: Brain: Extra-axial spaces: No abnormal extra-axial fluid collections. Ventricular system: Within normal limits Cerebral parenchyma: No acute intraparenchymal hemorrhage or mass effect. The garcia-white junction is well differentiated. Cerebellum: Unremarkable. Mass effect: No evidence of midline shift. Intracranial vasculature: unremarkable Soft tissues: Normal. Calvarium/osseous structures: No depressed skull fracture. Paranasal sinuses and mastoid air cells: Clear. Visualized orbits: Orbital contents are intact. Cervical spine: Fracture: None. Osseous structures: Minimal osteophyte formation and facet and uncovertebral joint arthropathy throug hout the visualized spine. Vertebral alignment: Within normal limits. Spinal canal/Neural Foramina: No evidence of significant spinal canal narrowing. No evidence for sign ificant neural foraminal stenosis. Neck soft tissues: Prevertebral soft tissues are within normal limits. Other: The airway is patent. The lung apices are clear. IMPRESSION: No acute intracranial process. No evidence of cervical spine fracture. Mild multilevel degenerative disc disease.
[2024-01-19] MEDS: METOCLOPRAMIDE 5 MG/ML 2 ML VIAL IVP STA (10:15)
--- NOTE | 2024-01-19 10:22 | XR ---
EXAMINATION TYPE: XR chest 2V DATE OF EXAM: 01/19/2024 10:17 AM CLINICAL INDICATION:Female, 43 years old with history of syncope; COMPARISON: None TECHNIQUE: XR chest 2V Frontal and lateral views of the chest. FINDINGS: Lungs/Pleura: There is no evidence of pleural effusion, focal consolidation, or pneumothorax. Pulmonary vascularity: Unremarkable. Heart/mediastinum: Cardiomediastinal silhouette is unremarkable. Musculoskeletal: No acute osseous pathology. IMPRESSION: No acute cardiopulmonary disease/process.
[2024-01-19] MEDS: HYDROmorphone 1 MG/ML 1 ML SYRINGE IVP STA (10:54)
[2024-01-19] MEDS: LIDOCAINE 4% PATCH TOPICAL ONE (10:54)
[2024-01-19] MEDS: PROCHLORPERAZINE INJ 10 MG/2 ML VIAL IVP STA (10:54)
[2024-01-19 12:06] VITALS: BP 92/56; PULSE 66; RESP 16; TEMP 98
[2024-01-19] MEDS: DEXAMETHASONE SOD PHOSPHATE 10 MG/ML 1 ML VIAL IVP STA (12:40)
[2024-01-19] MEDS: traMADol 50 MG STARTER PACK 3 TAB BTL PO STA (12:41)
== END 2024-01-19 12:58 | disposition home or self-care (01) ==
LOC: EC 08:31
DX: S09.90XA Unspecified injury of head, initial encounter (principal); M54.30 Sciatica, unspecified side; F17.200 Nicotine dependence, unspecified, uncomplicated; R55 Syncope and collapse; Z88.0 Allergy status to penicillin; Z88.2 Allergy status to sulfonamides; W18.39XA Other fall on same level, initial encounter; W22.09XA Striking against other stationary object, initial encounter
CPT/HCPCS: 93005; 80053; 83690; 83735; 84484; 85025; 85610; 85730; 71046; 72125; 70450; 99406; 99285; 96374; 96375 ×5; 96361 ×4; J0780; J1100; J2765; J2405; J1170; J1885; 36415